=== PATIENT | male | born 1980 | race Two or more races ===

== ENCOUNTER 2020-04-12 02:12 | Emergency (ER) | payer SELFPAY ==
[~2020-04-12] VITALS: Ht 175.3 cm; Wt 87.8 kg
[2020-04-12] MEDS ORDERED: DEXAMETHASONE 4 MG TABLET ONE ×2 (02:53→02:55)
[2020-04-12] MEDS ORDERED: DEXAMETHASONE 4 MG TABLET PO ONE (03:00)
[2020-04-12 04:20] VITALS: BP 116/86
== END 2020-04-12 04:22 | disposition home or self-care (01) ==
LOC: ED 04:10
DX: J02.8 Acute pharyngitis due to other specified organisms (principal); N34.3 Urethral syndrome, unspecified; R05 Cough; R51.9 Headache, unspecified; M79.10 Myalgia, unspecified site; R00.0 Tachycardia, unspecified
CPT/HCPCS: 87081; 87880; 93005; 99284